=== PATIENT | male | born 1980 | race Caucasian/White ===

== ENCOUNTER → 2021-06-15 00:09 | Outpatient (CLI) | payer OTHER, SELFPAY ==
[2021-06-15 17:39] LABS: SARS-CoV-2 RNA PCR Negative
== END ==
PROVIDERS: Visit Provider Internal Medicine Gastroenterology
DX: Z01.812 Encounter for preprocedural laboratory examination (principal); Z20.822 Contact with and (suspected) exposure to COVID-19
CPT/HCPCS: C9803; U0003; U0005

== ENCOUNTER 2021-06-19 02:27 | Day surgery (SDC) | payer OTHER, SELFPAY ==
[2021-06-03 14:42] VITALS: BMI 25.9
[2021-06-19 08:56] VITALS: BP 131/87; PULSE 82; RESP 18; TEMP 37.1; O2SAT 100
--- NOTE | 2021-06-19 09:02 | P.PNAN_ITS ---
Anes - Initial Pre Proc Eval Procedure: Operation Date: 06/19/21 10:00 Proposed Procedures p Esophagogastroduodenoscopy - Jamar Goodson MD Date/Time: 06/19/21 09:02 Surgeon: Jamar Goodson MD Pre Op Diagnosis: nausea, epigastric pain Patient Data Age: 41 Gender: M Height: 1.75 m Weight: 80.3 kg Last Vital Signs Temp 37.1 C 06/19/21 08:56 Pulse 82 06/19/21 08:56 Resp 18 06/19/21 08:56 BP 131/87 06/19/21 08:56 Pulse Ox 100 06/19/21 08:56 Allergies Allergy/AdvReac Type Severity Reaction Status Date / Time No Known Allergies Allergy Verified 06/19/21 08:55 Home Medications Medication Instructions Recorded Confirmed Type esomeprazole magnesium 20 mg 40 mg PO DAILY cap 05/27/21 06/03/21 History capsule,delayed release Patient hx anesthesia problems: none Family hx anesthesia problems: none Results Review: All pre-operative results and documents have been reviewed as part of the pre-operative evaluation. 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 Gender identity (if verbalized by the patient): Male Spiritual care concerns: No Agree to blood products: Yes Anes - Eval Final PreProcedure Day of Procedure 06/19/21 09:02 Patient weight: overweight Heart: regular rate and rhythm Lungs: clear to auscultation and normal air movement Airway: Mallampati scale class II Neurological: alert and oriented Last oral intake: >/= 8 hours ASA classification: II Emergent: no Anesthetic plan: proceed Anesthesia type and monitoring: general GIVS Results Review: All pre-operative results and documents have been reviewed as part of the pre-operative evaluation. Informed Consent: The patient's anesthetic plan and its attendant risks and benefits were discussed with the patient/family/POA. Questions were solicited and answers provided to the satisfaction of the patient/family/POA.
[2021-06-19] MEDS: LACTATED RINGERS 1,000 ML 150 ML IV CONT (09:05)
--- NOTE | 2021-06-19 09:57 | WPDHPUPDATE1 ---
History and Physical Update Update Date/Time: 06/19/21 09:57 History and Physical has been reviewed, including an updated exam of the patient. There are NO changes in the patient's condition. Risks, benefits, and alternatives have been discussed and questions answered. Patient agrees to proceed with procedure.
[2021-06-19] MEDS: BENZOCAINE (*SP) 60 ML SPRAY CAN (HURRICAINE) 1 SPRAY MUCOUS MEM (10:06)
[2021-06-19 10:20] VITALS: BP 114/76; PULSE 80; RESP 22; O2SAT 97
[2021-06-19 10:30] VITALS: BP 120/83; PULSE 80; RESP 20; O2SAT 97
[2021-06-19 10:40] VITALS: BP 109/92; PULSE 73; RESP 18; O2SAT 97
== END 2021-06-19 11:08 | disposition home or self-care (01) ==
PROVIDERS: Visit Provider Internal Medicine Gastroenterology
PROC: 0DJ08ZZ Inspection of Upper Intestinal Tract, Via Natural or Artificial Opening Endoscopic (ICD-10-PCS; CPT 43235; principal; 2021-06-19 10:00)
DX: K21.9 Gastro-esophageal reflux disease without esophagitis (principal)
CPT/HCPCS: 43239; 88305; C9803; J2704; J7120; U0003; U0005

== ENCOUNTER 2023-11-18 08:45 | Day surgery (SDC) | payer OTHER, SELFPAY ==
[2023-11-05 09:18] VITALS: BMI 27.4
[2023-11-05 13:05] VITALS: BMI 28.1
--- NOTE | 2023-11-18 07:41 | WPDANESEPPF ---
Anes - Initial Pre Proc Eval Procedure: Operation Date: 11/18/23 11:30 Proposed Procedures p Diagnostic Colonoscopy - Jason Nino MD Date/Time: 11/18/23 07:41 Surgeon: Jason Nino MD Pre Op Diagnosis: Hemorrhage of anus and rectum.Fam HX malignant Patient Data Age: 43 Gender: M Height: 1.75 m Weight: 86.5 kg Allergies Allergy/AdvReac Type Severity Reaction Status Date / Time No Known Allergies Allergy Verified 11/18/23 10:22 Home Medications Medication Instructions Recorded Confirmed Type esomeprazole magnesium 20 mg 40 mg PO DAILY 05/27/21 11/18/23 History capsule,delayed release (Nexium) lisinopril 10 mg tablet 10 mg PO DAILY #90 tabs 10/14/23 11/18/23 Rx hydrocortisone acetate 25 mg 25 mg RECTAL BID PRN hemorrhoids 11/04/23 11/18/23 Rx rectal suppository #12 ea Patient hx anesthesia problems: none Family hx anesthesia problems: none Results Review: All pre-operative results and documents have been reviewed as part of the pre-operative evaluation. 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 Gender identity (if verbalized by the patient): Male Spiritual care concerns: No Agree to blood products: Yes Anes - Eval Final PreProcedure Day of Procedure 11/18/23 07:41 Patient weight: overweight Heart: regular rate and rhythm Lungs: clear to auscultation Airway: Mallampati scale class II Neurological: alert and oriented Last oral intake: >/= 8 hours ASA classification: III Emergent: no Anesthetic plan: proceed Anesthesia type and monitoring: general GIVS and standard monitoring Results Review: All pre-operative results and documents have been reviewed as part of the pre-operative evaluation. Informed Consent: The patient's anesthetic plan and its attendant risks and benefits were discussed with the patient/family/POA. Questions were solicited and answers provided to the satisfaction of the patient/family/POA.
--- NOTE | 2023-11-18 10:27 | P.HP_ITS ---
History of Present Illness History of Present Illness Consent: Risks, benefits, and alternatives have been discussed and questions answered. Patient agrees to proceed with procedure. Chief complaint: Hemorrhage of anus and rectum.Fam HX malignant Narrative: Selena Thomas is a 43 year old male patient presents for colonoscopy. Family history significant his father had colon cancer. Patient has noticed intermittent bright red blood per rectum over the last 1 year. Has had for 5 episodes. Patient denies abdominal nor rectal pain. His bowel habits were reported as normal. Patient referred today for colonoscopy to evaluate more thoroughly. Review of Systems Review of Systems: Review of systems is noncontributory. 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 Gender identity (if verbalized by the patient): Male Spiritual care concerns: No Agree to blood products: Yes Meds Home Medications and Allergies Home Medications Medication Instructions Recorded Confirmed Type esomeprazole magnesium 20 mg 40 mg PO DAILY 05/27/21 11/18/23 History capsule,delayed release (Nexium) lisinopril 10 mg tablet 10 mg PO DAILY #90 tabs 10/14/23 11/18/23 Rx hydrocortisone acetate 25 mg 25 mg RECTAL BID PRN hemorrhoids 11/04/23 11/18/23 Rx rectal suppository #12 ea Allergies Allergy/AdvReac Type Severity Reaction Status Date / Time No Known Allergies Allergy Verified 11/18/23 10:22 Exam Narrative: Physical exam reveals patient to be alert. Vital signs stable. HEENT is unremarkable. Patient is anicteric. Lungs are clear to auscultation and to percussion. Heart is without murmur or extra sounds. Abdomen bowel sounds are present soft nontender with no organomegaly. Digital external rectal exam is normal. Assessment and Plan Assessment and plan (1) Rectal bleeding: Code(s): K62.5 - Hemorrhage of anus and rectum Status: Acute Assessment and Plan: Patient with occasional episodes of bright red blood per rectum over the last 1 year. High-fiber diet is recommended. Colonoscopy will be performed to evaluate more thoroughly. Further recommendations may be given after endoscopy. (2) Family history of colon cancer in father: Code(s): Z80.0 - Family history of malignant neoplasm of digestive organs Status: Acute Assessment and Plan: Father has had colon cancer. Recommend follow-up colonoscopy at least every 5 years.
[2023-11-18 10:31] VITALS: BP 135/93; PULSE 93; RESP 18; TEMP 36.5; O2SAT 98
[2023-11-18 10:32] VITALS: BMI 27.8
[2023-11-18] MEDS: LACTATED RINGERS 1,000 ML 150 ML IV CONT (10:41)
[2023-11-18 11:15] VITALS: BP 109/77; PULSE 88; RESP 16; O2SAT 97
[2023-11-18 11:25] VITALS: BP 112/74; PULSE 78; RESP 16; O2SAT 99
[2023-11-18 11:35] VITALS: BP 120/80; PULSE 82; RESP 16; O2SAT 99
--- NOTE | 2023-11-18 12:30 | WPDANESPN ---
Anes - Prog Note Post-Op Date/Time: 11/18/23 12:30 Cardiovascular status: normal Respiratory status: normal Airway patency: baseline Mental status: baseline Post-Op hydration status: normal Vital Signs: Last Vital Signs Temp 36.5 C 11/18/23 10:31 Pulse 82 11/18/23 11:35 Resp 16 11/18/23 11:35 BP 120/80 11/18/23 11:35 Pulse Ox 99 11/18/23 11:35 O2 Del Method Room Air 11/18/23 11:35 Pain Score (VAS): 0 I/O: Intake & Output 11/17/23 11/18/23 11/18/23 23:59 07:59 15:59 Intake Total 700 Balance 700 Post-procedural complaints: none Patient Feedback: Patient satisfied with anesthetic care. Other Findings: Patient vital signs back to baseline. Patient denies nausea and vomiting. Patient's pain under control. Patient OK for discharge.
--- NOTE | 2023-11-18 12:45 | WPDANESPN ---
Anes - Prog Note Post-Op Date/Time: 11/18/23 12:45 Cardiovascular status: normal Respiratory status: normal Airway patency: baseline Mental status: baseline Post-Op hydration status: normal Vital Signs: Last Vital Signs Temp 36.5 C 11/18/23 10:31 Pulse 82 11/18/23 11:35 Resp 16 11/18/23 11:35 BP 120/80 11/18/23 11:35 Pulse Ox 99 11/18/23 11:35 O2 Del Method Room Air 11/18/23 11:35 Pain Score (VAS): 0 I/O: Intake & Output 11/17/23 11/18/23 11/18/23 23:59 07:59 15:59 Intake Total 700 Balance 700 Post-procedural complaints: none Patient Feedback: Patient satisfied with anesthetic care.
== END 2023-11-18 11:46 | disposition home or self-care (01) ==
PROVIDERS: PCP Family Medicine Adolescent Medicine; Visit Provider Internal Medicine Gastroenterology
PROC: 0DJD8ZZ Inspection of Lower Intestinal Tract, Via Natural or Artificial Opening Endoscopic (ICD-10-PCS; CPT 45378; principal; 2023-11-18 11:30)
DX: Z80.0 Family history of malignant neoplasm of digestive organs (principal); K62.5 Hemorrhage of anus and rectum; K57.30 Diverticulosis of large intestine without perforation or abscess without bleeding; K64.8 Other hemorrhoids
CPT/HCPCS: 45378

== ENCOUNTER 2024-03-07 14:21 | Outpatient (CLI) | payer OTHER, SELFPAY ==
--- NOTE | 2024-03-07 | ECG_ITS ---
Test Date: 2024-03-07 15:06:09 Measurements Intervals [place] Rate: 79 P: 43 UT: 164 QRS: 46 QRSD: 96 T: 64 QT: 374 QTc: 429 Interpretive Statements SINUS RHYTHM INCOMPLETE RIGHT BUNDLE BRANCH BLOCK BORDERLINE ECG No previous ECG available for comparison Electronically Signed On 03-07-2024 15:07:48 CDT by Lenny Roberts D.O.
[2024-03-07 15:06] LABS: Anion Gap 11 mmol/L (4-12); Blood Urea Nitrogen 12 mg/dL (9-20); Calcium 9.1 mg/dL (8.4-10.2); Carbon Dioxide 26 mmol/L (22-30); Chloride 101 mmol/L (98-107); Estimated Glomerular Filt Rate > 60; Glucose 129 mg/dL (65-110); Potassium 3.9 mmol/L (3.4-5.0); Sodium 138 mmol/L (137-145)
== END 2024-03-07 14:22 | disposition home or self-care (01) ==
LOC: ANHLAB 14:26
PROVIDERS: PCP Family Medicine Adolescent Medicine; Visit Provider Nurse Anesthetist, Certified Registered
DX: Z01.818 Encounter for other preprocedural examination (principal); I45.19 Other right bundle-branch block
CPT/HCPCS: 36415; 80048; 93005